=== PATIENT | male | born 2000 | race Caucasian/White ===

== ENCOUNTER 2019-08-05 11:15 | Emergency (ER) | payer BC, OTHER, SELFPAY ==
[2019-08-05 11:16] VITALS: BP 100/70; PULSE 67; RESP 10; TEMP 36.9; O2SAT 100; BMI 18.1
--- NOTE | 2019-08-05 11:23 | EKG12_ITS ---
Test Reason : CP Blood Pressure : / mmHG Vent. Rate : 065 BPM Atrial Rate : 065 BPM P-R Int : 112 ms QRS Dur : 116 ms QT Int : 390 ms P-R-T Axes : 024 108 023 degrees QTc Int : 405 ms Sinus rhythm with frequent Premature ventricular complexes Incomplete right bundle branch block Abnormal ECG Confirmed by YAAKOV GARCIA, KENROY ([id number]), film and video editor MACEY HELLER ([id number]) on 08/08/2019 10:01:52 AM Referred By: JACKSON Confirmed By:KENROY NUNO MD
--- NOTE | 2019-08-05 11:25 | ED.VIS.GEN ---
History of Present Illness Chief Complaint: Chest Pain Detail of Chief Complaint: Chest pain and near syncope Informant: Patient Onset: Today - Syncopal sewed occurred this morning after getting out of bed, Days - Chest discomfort has been present for a couple of days. 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 He has had no surgery since the age of 2. He is a student at the [employer]. He went to the wellness center was referred to the emergency department. He reports anterior chest pain without radiation, nausea vomiting diaphoresis or shortness of breath. He states Thursday he had a cough. He has history of nasal congestion, which is chronic. He denies headache. Denies visual, ocular auditory symptoms. The chest pain was described as a tight sensation with periods of increased intensity described as sharp. There are no alleviating factors. Made worse with bending taking a deep breath. There is no history of VTE. He has no risk factors for VTE. He denies leg pain, swelling discoloration. He denies fever, chills or night sweats. He denies weight gain or weight loss. He denies black or maroon stool. He denies myalgias or arthralgias. He denies joint swelling. Prior similar symptoms: No Recent Illness/Hospitalization: No - Past Medical History (1) Coarctation of aorta Status: Acute Past Medical History - Allergies and Home Meds Allergies/Adverse Reactions: Allergies No Known Allergies Allergy (Verified 08/05/19 11:23) Primary Care Physician: Care Physician,No Primary [NON-STAFF] - Prior records reviewed: No Surgical History: - - Repair coarctation of aorta Lives: With Family Smoking Status: Never smoker Alcohol: None Drugs: None Review of Systems General: Denies: Chills, Fever, Malaise, Subjective, Sweats, Weight loss Eyes: Denies: Visual changes - bilaterally ENT: Reports: Rhinorrhea. Denies: Bilateral ear pain, Sore throat Cardiovascular: Reports: Chest pain, - - And has history of premature atrial and ventricular beats. 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 Denies: Palpitations, Heart racing Respiratory: Denies: Dyspnea, Cough, Sputum, Dyspnea on exertion Gastrointestinal: Denies: Abdominal pain, Nausea, Vomiting, Diarrhea, Melena, Hematochezia Musculoskeletal: Denies: Myalgias, Arthralgias, Neck pain, Back pain, Swelling, Extremity Pain, -, - Skin: Denies: Rash, Wounds Neurological: Denies: Headache, Weakness, Numbness Hematologic: Denies: Easy bruising, Easy bleeding Allergy: Denies: Uticaria, Swelling of the mouth Physical Exam Vital Signs/Narrative: Vital Signs Temp Pulse Resp BP Pulse Ox 08/05/19 11:16 98.5 F 67 10 L 100/70 100 Inital Vital Signs reviewed: Yes General: Well nourished, Well developed, No Acute Distress Head: Normocephalic, Atraumatic Eyes: Perrl, EOMI. Negative for: Pale conjunctiva, Scleral icterus ENT: Moist mucous membranes, No rhinorrhea Neck: Supple, Nontender, No lymphadenopathy, No JVD, - - Trachea is midline. Cardiovascular: No murmurs, Normal S1, Normal S2, Irregular Respiratory: No distress, CTA bilaterally, Chest nontender Abdomen: Soft, Nontender, Nondistended, Normal bowel sounds Rectal: Deferred Back: Nontender, Normal Inspection Extremities: Nontender, No edema, - - There is no asymmetry, swelling, discoloration, leg vein distention, palpable cords or tenderness along the distribution of the deep venous system. Skin: Normal color, No rash, No Trauma. Negative for: Cyanosis, Diaphoresis, Jaundice Neurological: Alert, Oriented x3, Cranial nerves II-XII grossly intact, Normal Strength, Normal Sensation Psychological: Normal affect, Normal Mood Diagnostic/Tx/Re-eval Chest X-Ray - ED: 2 View, Read by ED Physician, Normal, Heart, Lungs, Mediastinum, Bony Structures, No Acute Disease, - - X-ray interpreted at 1222 08/05/19 12:05 Chest PA and Lateral [RAD] Stat Laboratory Results 08/05/19 12:00 WBC 13.5 H RBC 5.12 Hgb 15.7 Hct 46.2 MCV 90.2 MCH 30.7 MCHC 34.0 RDW Std Deviation 39.0 RDW Coeff of Gera 11.9 Plt Count 256 MPV 11.1 Immature Gran % (Auto) 0.200 Neut % (Auto) 74.6 H Lymph % (Auto) 18.7 L [place] % (Auto) 5.6 Eos % (Auto) 0.5 Baso % (Auto) 0.4 Absolute Neuts (auto) 10.1 H Absolute Lymphs (auto) 2.53 Nucleated RBC % 0 CBC is remarkable slight elevated white count which is nonspecific. Basic metabolic panel is unremarkable. Troponin is normal. Patient had a vagal response to the insertion of his Hep-Lock. He reports the symptoms he had was similar to what he experienced this morning. Patient was informed the cause of his chest pain is unknown. - EKG Initial EKG Interpretation: Sinus Rhythm - Sinus rhythm with a ventricular rate of 65. WI interval 112 ms. QRS duration 116 ms. QT duration 390 ms. There are premature ventricular beats noted. Computer reads possible right ventricular hypertrophy. No evidence of ischemia. - Medical Decision Making With history of chest pain and pleuritic component need to consider pleurisy versus pneumonia versus pulmonary embolus. Patient is PERC negative. This may represent atypical ischemia due to cardiomyopathy. EKG, chest x-ray and appropriate blood work was ordered. Patient's monitor reveals premature atrial as well as ventricular beats. This is not a new finding. ED Disposition - Plan for ED Patient: Disposition: Home or Assisted Living Diagnosis: Chest pain, Vasovagal near syncope Instructions: CHEST PAIN, Uncertain Cause, NEAR SYNCOPE, Vasovagal Referrals: Care Physician,No Primary [NON-STAFF] - [facility] [GROUP OF PHYSICIANS] - 3-5 Days if not improving
--- NOTE | 2019-08-05 12:05 | RAD_ITS ---
EXAM DESCRIPTION: PA and lateral chest CLINICAL HISTORY: 19 years Male, LEFT SIDED CHEST PAIN -- LIGHTHEADED LEFT SIDED CHEST PAIN -- LIGHTHEADED COMPARISON: None FINDINGS: The thorax is intact. The heart and mediastinum appear to be within normal limits. The lungs appear to be well areated without evidence of pneumonic consolidation or pleural effusion. RAD/Chest PA and Lateral IMPRESSION: Normal PA and lateral chest Electronically Signed: Parag Elliott, at 12:58 EST Tel , Service support ,
[2019-08-05 12:19] LABS: Absolute Lymphocyte Count 2.53 X10^3/uL (0.83-4.51); Absolute Neutrophil Count 10.1 X10^3/uL (2.0-7.7); Basophil# 0.06 X10^3/uL; Basophil% 0.4 % (0-1); Eosinophil# 0.07 X10^3/uL; Eosinophils% 0.5 % (0-5); Hematocrit 46.2 % (40-54); Hemoglobin 15.7 g/dL (13.0-16.5); Lymphocyte # 2.53 X10^3/ul (4.0); Lymphocyte % 18.7 % (19-41); Mean Corpuscular Hgb 30.7 pg (27.0-32.0); Mean Corpuscular Volume 90.2 fL (80-94); Mean Platelet Vol. 11.1 fl (6.2-12.0); Monocyte# 0.76 X10^3/uL; Monocyte% 5.6 % (0-10); NRBC Flagged by Analyzer 0 % (0-5); Neutrophil # 10.09 X10^3/uL (2.7-7.7); Neutrophil % 74.6 % (47-70); Platelet Count 256 K/mm3 (150-450); RBC Distribution Width CV 11.9 % (11.6-14.6); Red Blood Count 5.12 M/mm3 (4.6-6.2); White Blood Count 13.5 K/mm3 (4.4-11.0)
[2019-08-05 12:31] LABS: Anion Gap 6 (5-15); BUN 16 mg/dL (7-18); BUN/Creat Ratio 13.9 RATIO (10-20); Calcium,Total 9.6 mg/dL (8.5-10.1); Chloride 108 mmol/L (98-107); Creatinine, Serum 1.15 mg/dL (0.70-1.30); EST Glomerular Filtration Rate 86 mL/min (>60); Est Glom Filt Rate - Afr Amer 104 mL/min (>60); Estimated Creatinine Clearance 87.83 ml/min; Glucose 100 mg/dL (74-106); Potassium 4.1 mmol/L (3.5-5.1); Sodium Level 139 mmol/L (136-145)
[2019-08-05 12:56] VITALS: BP 97/68; PULSE 73; RESP 13; O2SAT 96
== END 2019-08-05 12:57 | disposition home or self-care (01) ==
PROVIDERS: Emergency Provider Emergency Medicine; PCP Pediatrics
DX: R07.9 Chest pain, unspecified (principal); R55 Syncope and collapse; Q25.1 Coarctation of aorta
CPT/HCPCS: 71046; 80048; 84484; 85025; 93005; 99285

== ENCOUNTER → 2021-05-13 13:45 | Outpatient (CLI) | payer BC, OTHER, SELFPAY | PROVIDERS: Visit Provider Family Medicine | DX: Z23 Encounter for immunization (principal) ==